=== PATIENT | female | born 1985 | race Caucasian/White ===

== ENCOUNTER 2020-05-23 08:11 | Emergency (ER) | payer OTHER ==
[2020-05-23] MEDS ORDERED: Sodium Chloride 0.9% 1000 ML 1,000 ML IV SCH (08:45)
--- NOTE | 2020-05-23 08:57 | ERPHSYRPT ---
- History of Present Illness Time Seen by Provider: 05/23/20 08:25 Source: patient Patient Subjective Stated Complaint: pt is aprox. 10 weeks . pt states she woke up this morning and went to the bathroom and had a little blood on the toilet paper. pt states she also has some slight cramping, nothing too bad. pt states this is her 5th and has never had any issues. pt states she seen some tiny blood clots when she went to the bathroom. Triage Nursing Assessment: pt A&Ox4. pt ambulatory. pt skin pwd. Physician History: Patient is a 34-year-old female G5, P4 M0 presents to our ED currently 10 weeks . Patient complains of vaginal bleeding. Patient states she went to the bathroom this morning and wiped. Patient observed a tiny clots and tinge of blood on toilet paper. Patient admits to experiencing mild intermittent cramping. No trauma. No fever. No nausea or vomiting. No diaphoresis. No diarrhea. No dizziness patient denies history of complications. She is otherwise healthy. Patient has been taking vitamins. Patient voices no other complaints concerns at this time. Timing/Duration: today Severity: mild Modifying Factors: Improves With: other (No modifying factors.) Associated Symptoms: denies symptoms Allergies/Adverse Reactions: No Known Drug Allergies Allergy (Verified 05/23/20 08:29) Home Medications: Vit37/Iron/Folic Acid [Prenata Chewable Tablet] 1 tab PO DAILY 05/23/20 [History] Hx Tetanus, Diphtheria Vaccination/Date Given: Yes Hx Influenza Vaccination/Date Given: No Hx Pneumococcal Vaccination/Date Given: No Immunizations Up to Date: Yes Travel Risk - International Travel Have you traveled outside of the country in past 3 weeks: No - Coronavirus Screening Are you exhibiting any of the following symptoms?: No Close contact with a COVID-19 positive Pt in past 14-21 Days: No - Review of Systems Constitutional: No Symptoms, No Fever, No Chills Eyes: No Symptoms Ears, Nose, & Throat: No Symptoms Respiratory: No Symptoms, No Cough, No Dyspnea Cardiac: No Symptoms, No Chest Pain, No Edema, No Syncope Abdominal/Gastrointestinal: No Symptoms, No Abdominal Pain, No Nausea, No Vomiting, No Diarrhea Genitourinary Symptoms: No Symptoms, No Dysuria Musculoskeletal: No Symptoms, No Back Pain, No Neck Pain Skin: No Symptoms, No Rash Neurological: No Symptoms, No Dizziness, No Focal Weakness, No Sensory Changes Psychological: No Symptoms Endocrine: No Symptoms Hematologic/Lymphatic: No Symptoms Immunological/Allergic: No Symptoms All Other Systems: Reviewed and Negative - Past Medical History Pertinent Past Medical History: No Neurological History: No Pertinent History ENT History: No Pertinent History Cardiac History: No Pertinent History Respiratory History: No Pertinent History Endocrine Medical History: No Pertinent History Musculoskeletal History: No Pertinent History GI Medical History: No Pertinent History History: No Pertinent History Psycho-Social History: No Pertinent History Female Reproductive Disorders: No Pertinent History Other Medical History: kidney stones - Past Surgical History Past Surgical History: Yes Neuro Surgical History: No Pertinent History Cardiac: No Pertinent History Respiratory: No Pertinent History Gastrointestinal: Appendectomy Genitourinary: No Pertinent History Musculoskeletal: No Pertinent History Female Surgical History: No Pertinent History Other Surgical History: stent placed for kidney stone - Social History Smoking Status: Light tobacco smoker Exposure to second hand smoke: Yes Drug Use: none Patient Lives Alone: No - Female History Hx Last Menstrual Period: 03/13/2020 Hx Now: Yes Expected Date of Delivery: 12/18/20 - Nursing Vital Signs Nursing Vital Signs: Initial Vital Signs Temperature 97.8 F 05/23/20 08:22 Pulse Rate 96 H 05/23/20 08:22 Respiratory Rate 17 05/23/20 08:22 Blood Pressure 151/91 05/23/20 08:22 O2 Sat by Pulse Oximetry 100 05/23/20 08:22 Pain Scale Pain Intensity 1 - Physical Exam General Appearance: no apparent distress, alert Eye Exam: PERRL/EOMI, eyes nml inspection Ears, Nose, Throat Exam: normal ENT inspection, TMs normal, pharynx normal, moist mucous membranes Neck Exam: normal inspection, non-tender, supple, full range of motion Respiratory Exam: normal breath sounds, lungs clear, No respiratory distress Cardiovascular Exam: regular rate/rhythm, normal heart sounds, normal peripheral pulses Gastrointestinal/Abdomen Exam: soft, normal bowel sounds, No tenderness, No mass Pelvic Exam: normal external exam, other (No active vaginal bleeding. Cervical office is closed. Minimal blood in vaginal vault.), No adnexal tenderness, No adnexal mass, No mass, No cervical motion tenderness, No uterine tenderness Back Exam: normal inspection, normal range of motion, No CVA tenderness, No vertebral tenderness Extremity Exam: normal inspection, normal range of motion, pelvis stable Neurologic Exam: alert, oriented x 3, cooperative, normal mood/affect, nml cerebellar function, nml station & gait, sensation nml, No motor deficits Skin Exam: normal color, warm, dry, No rash Lymphatic Exam: No adenopathy SpO2 Interpretation: normal SpO2: 100 O2 Delivery: Room Air - Course Nursing assessment & vital signs reviewed: Yes - Radiology Ultrasound Exam OB Ultrasound: discussed w/radiologist (Per radiology check patient appears to be 5 weeks 4 days. No other abnormalities.) Ordered Tests: Active Orders 24 hr Category Date Time Status IV Insertion STAT Care 05/23/20 08:34 Active OB <14 WKS 1ST GESTATION [US] Stat Exams 05/23/20 08:33 Completed CBC W DIFF Stat Lab 05/23/20 08:45 Completed CMP Stat Lab 05/23/20 08:45 Completed CULTURE,URINE Stat Lab 05/23/20 08:45 Received HCG, Quantitative (Inhouse) Stat Lab 05/23/20 08:45 Completed UA W/RFX UR CULTURE Stat Lab 05/23/20 08:45 Completed Wet Prep Stat Lab 05/23/20 10:59 Completed Medication Summary Generic Name Dose Route Start Last Admin Trade Name Freq PRN Reason Stop Dose Admin Sodium Chloride 1,000 mls @ 100 mls/hr 05/23/20 08:45 05/23/20 10:16 Sodium Chloride 0.9% 1000 Ml IV 06/22/20 08:44 100 mls/hr .Q10H BRITTANI Administration Lab/Rad Data: Laboratory Result Diagrams 05/23/20 08:45 05/23/20 08:45 Laboratory Results 05/23/20 05/23/20 05/23/20 Range/Units 10:59 08:45 08:45 WBC (4.0-10.5) K/mm3 RBC (4.1-5.4) M/mm3 Hgb (12.0-16.0) gm/dl Hct (35-47) % MCV (78-100) fl MCH (26-32) pg MCHC (32-36) g/dl RDW (11.5-14.0) % Plt Count (150-450) K/mm3 MPV (7.5-11.0) fl Gran % (36.0-66.0) % Eos # (Auto) (0-0.5) Absolute Lymphs (auto) (1.0-4.6) Absolute Monos (auto) (0.0-1.3) Lymphocytes % (24.0-44.0) % Monocytes % (0.0-12.0) % Eosinophils % (0.00-5.0) % Basophils % (0.0-0.4) % Absolute Granulocytes (1.4-6.9) Basophils # (0-0.4) Sodium (137-145) mmol/L Potassium (3.5-5.1) mmol/L Chloride (98-107) mmol/L Carbon Dioxide (22-30) mmol/L Anion Gap (5-15) MEQ/L BUN (7-17) mg/dL Creatinine (0.52-1.04) mg/dL Estimated GFR ML/MIN Glucose (74-106) mg/dL Calcium (8.4-10.2) mg/dL Total Bilirubin (0.2-1.3) mg/dL AST (14-36) U/L ALT (0-35) U/L Alkaline Phosphatase (38-126) U/L Serum Total Protein (6.3-8.2) g/dL Albumin (3.5-5.0) g/dL Beta HCG, Quant mIU/ml Urine Color YELLOW (YELLOW) Urine Appearance SLIGHTLY CLOUDY (CLEAR) Urine pH 7.0 (5-6) Ur Specific Antoine 1.019 (1.005-1.025) Urine Protein 30 (Negative) Urine Ketones NEGATIVE (NEGATIVE) Urine Blood LARGE (0-5) Wang/ul Urine Nitrite NEGATIVE (NEGATIVE) Urine Bilirubin NEGATIVE (NEGATIVE) Urine Urobilinogen NEGATIVE (0-1) mg/dL Ur Leukocyte Esterase SMALL (NEGATIVE) Urine WBC (Auto) 11-15 (0-5) /HPF Urine RBC (Auto) >101 (0-2) /HPF U Epithel Cells (Auto) RARE (FEW) /HPF Urine Bacteria (Auto) FEW (NEGATIVE) /HPF Urine Mucus (Auto) SLIGHT (NEGATIVE) /HPF Urine Culture Reflexed YES (NO) Urine Glucose NEGATIVE (NEGATIVE) mg/dL WBC (Wet Prep) Few RBC (Wet Prep) Few Epi Cells (Wet Prep) Few Bacteria (Wet Prep) Many Clue Cells (Wet Prep) None Seen Trichomonas (Wet Prep) None Seen Budding Yeast (Wet Prp) None Seen ABO Group O Rh Factor POSITIVE Antibody Screen NEGATIVE (NEGATIVE) 05/23/20 05/23/20 05/23/20 Range/Units 08:45 08:45 08:45 WBC 7.5 (4.0-10.5) K/mm3 RBC 4.13 (4.1-5.4) M/mm3 Hgb 12.7 (12.0-16.0) gm/dl Hct 39.0 (35-47) % MCV 94.4 (78-100) fl MCH 30.8 (26-32) pg MCHC 32.6 (32-36) g/dl RDW 12.7 (11.5-14.0) % Plt Count 246 (150-450) K/mm3 MPV 9.3 (7.5-11.0) fl Gran % 62.8 (36.0-66.0) % Eos # (Auto) 0.05 (0-0.5) Absolute Lymphs (auto) 1.93 (1.0-4.6) Absolute Monos (auto) 0.79 (0.0-1.3) Lymphocytes % 25.7 (24.0-44.0) % Monocytes % 10.5 (0.0-12.0) % Eosinophils % 0.7 (0.00-5.0) % Basophils % 0.3 (0.0-0.4) % Absolute Granulocytes 4.71 (1.4-6.9) Basophils # 0.02 (0-0.4) Sodium 140 (137-145) mmol/L Potassium 3.7 (3.5-5.1) mmol/L Chloride 104 (98-107) mmol/L Carbon Dioxide 26 (22-30) mmol/L Anion Gap 13.3 (5-15) MEQ/L BUN 9 (7-17) mg/dL Creatinine 0.62 (0.52-1.04) mg/dL Estimated GFR > 60.0 ML/MIN Glucose 87 (74-106) mg/dL Calcium 9.4 (8.4-10.2) mg/dL Total Bilirubin 0.60 (0.2-1.3) mg/dL AST 23 (14-36) U/L ALT 17 (0-35) U/L Alkaline Phosphatase 58 (38-126) U/L Serum Total Protein 7.2 (6.3-8.2) g/dL Albumin 4.4 (3.5-5.0) g/dL Beta HCG, Quant 8027.2 mIU/ml Urine Color (YELLOW) Urine Appearance (CLEAR) Urine pH (5-6) Ur Specific Antoine (1.005-1.025) Urine Protein (Negative) Urine Ketones (NEGATIVE) Urine Blood (0-5) Wang/ul Urine Nitrite (NEGATIVE) Urine Bilirubin (NEGATIVE) Urine Urobilinogen (0-1) mg/dL Ur Leukocyte Esterase (NEGATIVE) Urine WBC (Auto) (0-5) /HPF Urine RBC (Auto) (0-2) /HPF U Epithel Cells (Auto) (FEW) /HPF Urine Bacteria (Auto) (NEGATIVE) /HPF Urine Mucus (Auto) (NEGATIVE) /HPF Urine Culture Reflexed (NO) Urine Glucose (NEGATIVE) mg/dL WBC (Wet Prep) RBC (Wet Prep) Epi Cells (Wet Prep) Bacteria (Wet Prep) Clue Cells (Wet Prep) Trichomonas (Wet Prep) Budding Yeast (Wet Prp) ABO Group Rh Factor Antibody Screen (NEGATIVE) - Progress Progress: improved Progress Note: 05/23/20 11:28 Wet mount ordered. Results pending. GC chlamydia unable to be processed due to low volume of urine provided. Patient did not want to wait to provide us a larger urine sample. She states she will follow-up with her primary care doctor and obtain a GC chlamydia as indicated. Ultrasound shows a gestational sac consistent with 5 weeks 4 days. Patient's estimated 10-week gestational age was based on LMP. UTI observed. Macrobid transmitted to patient's pharmacy. Will discharge patient home. Wet mount results pending. Week will call patient at home with results if positive. Counseled pt/family regarding: lab results, diagnosis, need for follow-up, meera stein - Departure Departure Disposition: Home Clinical Impression: UTI (urinary tract infection), Threatened , Vaginal bleeding Condition: Stable Critical Care Time: No Referrals: FRANCISCO BAUER MD [Primary Care Provider] - Additional Instructions: Discharge/Care Plan OTILIO CORDOBA was seen on 05/23/20 in the Emergency Room. The patient was counseled regarding Diagnosis,Lab results, Imaging studies, need for follow up and when to return to the Emergency Room. Prescriptions given: Discharge Note I have spoken with the patient and/or caregivers. I have explained the patient's condition, diagnosis and treatment plan based on the information available to me at this time. I have answered the patient's and/or caregiver's questions and addressed any concerns. The patient and/or caregivers have as good understanding of the patient's diagnosis, condition and treatment plan as can be expected at this point. The vital signs have been stable. The patient's condition is stable and appropriate for discharge from the emergency department. The patient will pursue further outpatient evaluation with the primary care physician or other designated or consulting physician as outlined in the discharge instructions. The patient and/or caregivers are agreeable to this plan of care and follow-up instructions have been explained in detail. The patient and/or caregivers have received these instruction. The patient/and or caregivers are aware that any significant change in condition or worsening of symptoms should prompt an immediate return to this or the closest emergency department or call 911. Prescriptions: Nitrofurantoin Macro 100 mg [Macrobid 100MG Capsule] 100 mg PO BID 7 Days #14 capsule
[2020-05-23 09:06] LABS: Absolute Neutrophil Ct (ANC) 4.71 (1.4-6.9); BASOPHIL % 0.3 % (0.0-0.4); Basophil (Absolute #) 0.02 (0-0.4); Eosinophil % 0.7 % (0.00-5.0); Eosinophil (Absolute #) 0.05 (0-0.5); Hemoglobin 12.7 gm/dl (12.0-16.0); Lymphocyte (Absolute #) 1.93 (1.0-4.6); Lymphocytes % 25.7 % (24.0-44.0); Mean Cell Volume 94.4 fl (78-100); Mean Corpuscular Hemoglobin 30.8 pg (26-32); Mean Corpuscular Hgb Concent. 32.6 g/dl (32-36); Mean Platelet Volume 9.3 fl (7.5-11.0); Monocyte (Absolute #) 0.79 (0.0-1.3); Monocytes % 10.5 % (0.0-12.0); Neutrophil % 62.8 % (36.0-66.0); Platelet Count 246 K/mm3 (150-450); Red Blood Count 4.13 M/mm3 (4.1-5.4); Red Cell Distribution Width 12.7 % (11.5-14.0); White Blood Count 7.5 K/mm3 (4.0-10.5)
[2020-05-23] MEDS ORDERED: Sodium Chloride 0.9% 1000 ML 1,000 ML ONE ×2 (09:06→10:09)
[2020-05-23 09:14] LABS: ALBUMIN 4.4 g/dL (3.5-5.0); ALKALINE PHOSPHATASE 58 U/L (38-126); ANION GAP 13.3 MEQ/L (5-15); BLOOD UREA NITROGEN 9 mg/dL (7-17); CHLORIDE 104 mmol/L (98-107); Calcium 9.4 mg/dL (8.4-10.2); Carbon Dioxide 26 mmol/L (22-30); Creatinine 1 0.62 mg/dL (0.52-1.04); Glucose 87 mg/dL (74-106); Potassium 3.7 mmol/L (3.5-5.1); SGOT/AST 23 U/L (14-36); SGPT/ALT 17 U/L (0-35); SODIUM 140 mmol/L (137-145); Total Protein 7.2 g/dL (6.3-8.2)
[2020-05-23 09:17] LABS: Appearance SLIGHTLY CLOUDY (CLEAR); Bacteria FEW /HPF (NEGATIVE); Bilirubin NEGATIVE (NEGATIVE); Blood LARGE Ery/ul (0-5); Epithelial Cells RARE /HPF (FEW); Glucose NEGATIVE (NEGATIVE); Ketones NEGATIVE (NEGATIVE); Leukocyte Esterase SMALL (NEGATIVE); Mucus SLIGHT /HPF (NEGATIVE); Nitrite NEGATIVE (NEGATIVE); Protein,Urine Dip 30 (Negative); RBC >101 /HPF (0-2); Specific Gravity 1.019 (1.005-1.025); Urobilinogen NEGATIVE mg/dL (0-1)
[2020-05-23 09:41] LABS: ABO TYPING O; Antibody Screen NEGATIVE (NEGATIVE); RH TYPING POSITIVE
--- NOTE | 2020-05-23 10:20 | XRAY ---
Exam: OB ultrasound less than 14 weeks from 05/23/2020. Comparison: None. Indication: Check viability, bleeding. Findings: Multiple transvaginal images were obtained. A slightly irregular gestational sac is seen within the upper uterine segment which has a mean diameter of 1.38 cm consistent with a gestational age of 5 weeks, 4 days plus or -0 weeks, 4 days. In contrast, estimated gestational age by dates is 10 weeks, 1 day. I do not see a definite pole within the gestational sac. No cardiac activity/flash is seen. If clinically necessary, consider a follow-up OB ultrasound exam in 1-2 weeks. There appear to be some very small nabothian cysts within the cervical region. No free intraperitoneal fluid is seen within the cul-de-sac. The maternal left ovary is remarkable for a 1.27 cm in diameter probable corpus luteal cyst within it. The maternal right ovary appears unremarkable. Impression: 1. A small gestational sac with a mean diameter of 1.38 cm is seen within the central aspect of the upper uterine segment. The contour of the gestational sac is slightly irregular. I do not see any definite pole or cardiac activity within the gestational sac at this time. If clinically necessary, a follow-up OB ultrasound in 1 - 2 weeks time is suggested. 2. Probable 1.27 cm in diameter corpus luteal cyst within the maternal left ovary. Otherwise, the maternal ovaries are unremarkable. 3. No free fluid is seen within the cul-de-sac.
[2020-05-23 10:59] LABS: Bacteria Many; Clue Cells None Seen; Red Blood Cells Few; Trichomonas None Seen; White Blood Cells Few; Yeast None Seen
[2020-05-23 11:29] VITALS: O2SAT 100
[2020-05-23 11:39] VITALS: BP 126/74; PULSE 75
== END 2020-05-23 11:49 | disposition home or self-care (01) ==
LOC: ED 08:11
DX: O23.41 Unspecified infection of urinary tract in pregnancy, first trimester (principal); Z3A.10 10 weeks gestation of pregnancy; O20.0 Threatened abortion
CPT/HCPCS: 36415; 76801; 80053; 81001; 84702; 85025; 86850; 86900; 86901; 87086; 87210; 96360; 96361; 96374; 99284

== ENCOUNTER 2022-06-19 08:13 | Inpatient (IN) | payer OTHER ==
[2022-06-19] MEDS ORDERED: NORCO 5/325 MG PO PRN (10:12)
[2022-06-19] MEDS ORDERED: TUCKS TP PRN (10:12)
[2022-06-19] MEDS ORDERED: Lactated Ringers 1,000 ML IV ONE (10:12)
[2022-06-19] MEDS ORDERED: LANSINOH 40 GM TOP PRN (10:12)
[2022-06-19] MEDS ORDERED: Ephedrine Sulfate 50 MG/ML IV PRN (10:12)
[2022-06-19] MEDS ORDERED: XYLOCAINE 1% HCL 20 ML MDV IJ PRN (10:12)
[2022-06-19] MEDS ORDERED: Adacel Vial IM ONE (10:12)
[2022-06-19] MEDS ORDERED: Zofran 4 MG/2 ML VIAL IV PRN (10:12)
[2022-06-19] MEDS ORDERED: Dermoplast Spray TP PRN (10:12)
[2022-06-19] MEDS ORDERED: MOTRIN 400 MG PO PRN (10:12)
[2022-06-19] MEDS ORDERED: FENTANYL 2 MCG-BUPIV 0.125%-NS 250 ML Epidur 250 ML EPIDURAL SCH (10:15)
[2022-06-19] MEDS ORDERED: PITOCIN 30 UNITS/ LR 500 ML 30 UNITS/500 ML PLAST..BAG IV SCH ×2 (10:30→15:30)
[2022-06-19] MEDS ORDERED: Lactated Ringers 1,000 ML IV SCH (10:30)
[2022-06-19 11:06] LABS: Absolute Neutrophil Ct (ANC) 6.95 x10^3/uL (1.4-6.9); Basophil (Absolute #) 0.03 x10^3/uL (0-0.4); Eosinophil % 0.3 % (0.00-5.0); Eosinophil (Absolute #) 0.03 x10^3/uL (0-0.5); Hematocrit 36.6 % (35-47); Lymphocyte (Absolute #) 2.05 x10^3/uL (1.0-4.6); Lymphocytes % 19.8 % (24.0-44.0); Mean Cell Volume 95.3 fL (78-100); Mean Corpuscular Hemoglobin 31.3 pg (26-32); Mean Corpuscular Hgb Concent. 32.8 g/dL (32-36); Mean Platelet Volume 9.8 fL (7.5-11.0); Monocyte (Absolute #) 1.17 x10^3/uL (0.0-1.3); Monocytes % 11.3 % (0.0-12.0); Neutrophil % 67.3 % (36.0-66.0); Platelet Count 279 x10^3/uL (150-450); Red Blood Count 3.84 x10^6/uL (4.1-5.4); White Blood Count 10.3 x10^3/uL (4.0-10.5)
[2022-06-19 11:07] LABS: Barbiturate,Urine NEGATIVE (NEGATIVE); Benzodiazepine,Urine NEGATIVE (NEGATIVE); Cocaine,Urine NEGATIVE (NEGATIVE); Methadone,Urine NEGATIVE (NEGATIVE); Opiate,Urine NEGATIVE (NEGATIVE); PCP,Urine NEGATIVE (NEGATIVE); THC,Urine NEGATIVE (NEGATIVE)
[2022-06-19 11:12] LABS: Amphetamine,Urine NEGATIVE (NEGATIVE)
[2022-06-19 11:41] LABS: ABO TYPING O; Antibody Screen NEGATIVE (NEGATIVE); RH TYPING POSITIVE
[2022-06-19] MEDS: Tums EX 750 MG PO PRN ×2 (15:56→18:02)
[2022-06-20 05:38] LABS: Absolute Neutrophil Ct (ANC) 11.92 x10^3/uL (1.4-6.9); Basophil (Absolute #) 0.03 x10^3/uL (0-0.4); Eosinophil % 0.2 % (0.00-5.0); Eosinophil (Absolute #) 0.04 x10^3/uL (0-0.5); Hematocrit 30.9 % (35-47); Hemoglobin 10.2 g/dL (12.0-16.0); Lymphocyte (Absolute #) 3.12 x10^3/uL (1.0-4.6); Lymphocytes % 18.3 % (24.0-44.0); Mean Cell Volume 95.4 fL (78-100); Mean Corpuscular Hemoglobin 31.5 pg (26-32); Mean Platelet Volume 9.5 fL (7.5-11.0); Monocyte (Absolute #) 1.85 x10^3/uL (0.0-1.3); Monocytes % 10.9 % (0.0-12.0); Neutrophil % 69.9 % (36.0-66.0); Platelet Count 240 x10^3/uL (150-450); Red Blood Count 3.24 x10^6/uL (4.1-5.4); Red Cell Distribution Width 13.2 % (11.5-14.0); White Blood Count 17.1 x10^3/uL (4.0-10.5)
[2022-06-20 07:24] LABS: Slide Review 1 YES
[2022-06-20] MEDS: TYLENOL EXTRA STRENGTH 500 MG PO PRN ×2 (08:21→22:07)
[2022-06-20] MEDS: Docusate Sodium 100 MG PO SCH ×2 (08:21→22:08)
[2022-06-20] MEDS ORDERED: FERREX 150 PO SCH (10:00)
[2022-06-20 10:02] LABS: HBsAg Screen Negative (Negative); RPR Non Reactive (Non Reactive)
[2022-06-20 14:35] LABS: HIV Screen 4th Generation wRfx Non Reactive (Non Reactive)
[2022-06-21 03:40] VITALS: O2SAT 97
--- NOTE | 2022-06-21 08:39 | PCM.DS ---
Discharge Summary Date of Admission: 06/19/22 10:00 Admitting Physician: FRANCISCO BAUER Consults: Consults on Case 06/19/22 10:13 Notify Anesthesia Provider PRN 06/19/22 19:24 Navigation ONCE Primary Care Provider: FRANCISCO BAUER Allergies Allergies No Known Drug Allergies Allergy (Verified 05/23/20 08:29) Hospital Summary - Hospital Course Hospital Course: arrived in spont labor at 38wks, had uncomplicated with epidural anesthesia. no repair, and well bonded with daughter. doing great - Vitals & Intake/Output Vital Signs: Vital Signs Temperature 97.9 F 06/21/22 08:00 Pulse Rate 68 06/21/22 08:00 Respiratory Rate 18 06/21/22 08:00 Blood Pressure 139/77 06/21/22 08:00 O2 Sat by Pulse Oximetry 97 06/21/22 03:00 Intake & Output: Intake & Output 06/18/22 06/19/22 06/20/22 06/21/22 11:59 11:59 11:59 11:59 Intake Total 1375 200 Output Total 1240 Balance 135 200 Weight 78.018 kg - Lab Result Diagrams: 06/20/22 04:45 Lab Results-Last 24 Hrs: Lab Results-Last 24 Hours 06/19/22 06/19/22 Range/Units 10:58 10:58 RPR Non Reactive (Non Reactive) Hep Bs Antigen Negative (Negative) HIV 1&2 Ab/P24 Ag 4thGn Non Reactive (Non Reactive) Micro Results-Entire Visit: Microbiology 06/19/22 22:07 Urine Culture - Final Urine, Catheterized NO GROWTH Discharge Exam General Appearance: no apparent distress, alert Respiratory Exam: normal breath sounds, lungs clear, No respiratory distress Cardiovascular Exam: regular rate/rhythm, normal heart sounds Gastrointestinal/Abdomen Exam: soft, other (fundus firm, u/2) Extremity Exam: normal inspection, normal range of motion Skin Exam: normal color, warm, dry Final Diagnosis/Problem List - Final Discharge Diagnosis/Problem (1) Vaginal delivery Current Visit: No Status: Acute Code(s): O80 - ENCOUNTER FOR FULL-TERM UNCOMPLICATED DELIVERY (2) Breast feeding status of mother Current Visit: No Status: Acute Code(s): Z39.1 - ENCOUNTER FOR CARE AND EXAMINATION OF LACTATING MOTHER - Discharge Disposition: Home, Self-Care Condition: Stable Prescriptions: Continue Vit37/Iron/Folic Acid [Prenata Chewable Tablet] 1 tab PO DAILY Discontinued Nitrofurantoin Macro 100 mg [Macrobid 100MG Capsule] 100 mg PO BID 7 Days #14 capsule Follow up with: FRANCISCO BAUER MD [Primary Care Provider] - 6 weeks
[2022-06-21 14:27] VITALS: BP 140/83; PULSE 77
== END 2022-06-21 14:00 | disposition home or self-care (01) | DRG 807 ==
LOC: OB 08:13 → OBSVTOIN 10:00 → OB 10:00
PROVIDERS: ADMIT Family Medicine; ATTEND Family Medicine
PROC: 10E0XZZ Delivery of Products of Conception, External Approach (ICD-10-PCS; principal; 2022-06-19)
DX: O80 Encounter for full-term uncomplicated delivery (principal); Z37.0 Single live birth; Z3A.38 38 weeks gestation of pregnancy; Z20.828 Contact with and (suspected) exposure to other viral communicable diseases
CPT/HCPCS: 36415; 80307; 85025; 86592; 86850; 86900; 86901; 87086; 87340; 87389; 90715; J2590; A9270-GY

== ENCOUNTER 2023-10-10 11:33 | Emergency (ER) | payer OTHER ==
[2023-10-10 11:54] VITALS: TEMP 98.9
--- NOTE | 2023-10-10 11:56 | ERPHSYRPT ---
- History of Present Illness Time Seen by Provider: 10/10/23 11:50 Source: patient Exam Limitations: no limitations Patient Subjective Stated Complaint: pt states that she is short of breath. pt states that she has a cough and fever Triage Nursing Assessment: pt ambulated into the er; pt is axo x4; c/o SOB; pt has intermitten moist cough; pt has course expiratory wheezing present to rt upper lobe; SOB; audible wheezing present; skin is calmy, warm; afebrile; 20 weeks present; heart tone of 158 bpm; tachycardic Physician History: This is a 38-year-old white female patient of Dr. Bauer who presents with cough and shortness of breath and intermittent fevers for 2 days. Patient is 20 weeks . Patient's mother was diagnosed with COVID-19 infection. However, this patient was not around her till after she was able to return to work 2 weeks after her diagnosis. Patient has been using Tylenol based medication. heart tones on arrival to the urgency department 158 bpm. Room air oxygen saturation is 97% Timing/Duration: day(s) (2) Severity of Dyspnea-Max: mild (To moderate) Severity of Dyspnea-Current: mild (To moderate) Possible Cause: no prior episodes Modifying Factors: Improves With: coughing, deep breath Associated Symptoms: intermittent, cough, wheezing, No chest pain/discomfort, No hemoptysis Allergies/Adverse Reactions: No Known Drug Allergies Allergy (Verified 10/10/23 11:35) Home Medications: Vit37/Iron/Folic Acid [Prenata Chewable Tablet] 1 tab PO DAILY 05/23/20 [History] Hx Tetanus, Diphtheria Vaccination/Date Given: Yes Hx Influenza Vaccination/Date Given: No Hx Pneumococcal Vaccination/Date Given: No Travel Risk - International Travel Have you traveled outside of the country in past 3 weeks: No - Coronavirus Screening Are you exhibiting any of the following symptoms?: Yes Symptoms: Cough: New Onset, Shortness of Breath Close contact with a COVID-19 positive Pt in past 14-21 Days: No - Vaccine Status Have you recieved a Covid-19 vaccination: No - Review of Systems Constitutional: Fever Eyes: No Symptoms Ears, Nose, & Throat: No Symptoms Respiratory: Cough, Dyspnea, Wheezing Cardiac: No Symptoms Abdominal/Gastrointestinal: No Symptoms Genitourinary Symptoms: No Symptoms Musculoskeletal: No Symptoms Skin: No Symptoms Neurological: No Symptoms Psychological: No Symptoms Endocrine: No Symptoms Hematologic/Lymphatic: No Symptoms Immunological/Allergic: No Symptoms All Other Systems: Reviewed and Negative - Past Medical History Pertinent Past Medical History: Yes Neurological History: No Pertinent History ENT History: No Pertinent History Cardiac History: No Pertinent History Respiratory History: No Pertinent History Endocrine Medical History: No Pertinent History Musculoskeletal History: Fractures GI Medical History: No Pertinent History History: No Pertinent History, Other Psycho-Social History: No Pertinent History Female Reproductive Disorders: No Pertinent History Other Medical History: broken leg when 3 yo. stent placed for kidney stones in 2016. - Past Surgical History Past Surgical History: Yes Neuro Surgical History: No Pertinent History Cardiac: No Pertinent History Respiratory: No Pertinent History Gastrointestinal: Appendectomy Genitourinary: Kidney Surgery Musculoskeletal: No Pertinent History Female Surgical History: No Pertinent History Other Surgical History: stent placed for kidney stones in 2015. - Social History Smoking Status: Former smoker Exposure to second hand smoke: No Drug Use: none Patient Lives Alone: No - Female History Hx Now: Yes Gestational Age: 20 weeks - Nursing Vital Signs Nursing Vital Signs: Initial Vital Signs Pulse Rate 117 H 10/10/23 11:33 Respiratory Rate 34 H 10/10/23 11:33 Blood Pressure 140/84 10/10/23 11:33 O2 Sat by Pulse Oximetry 96 10/10/23 11:33 Pain Scale Pain Intensity 0 - Physical Exam General Appearance: no apparent distress, alert, anxiety Eye Exam: PERRL/EOMI, eyes nml inspection Ears, Nose, Throat Exam: hearing grossly normal, normal ENT inspection, normal pharynx Neck Exam: normal inspection, non-tender, supple, full range of motion Respiratory Exam: rhonchi (Mild bilateral), wheezing (Mild bilateral expiratory), No chest tenderness, No respiratory distress Cardiovascular/Chest Exam: tachycardia Abdominal/Gastrointestinal Exam: soft, normal bowel sounds, No tenderness Rectal Exam: not done Extremity Exam: non-tender, normal range of motion, normal inspection, normal capillary refill, no calf tenderness, no pedal edema, pelvis stable Neurologic Exam: alert, oriented x 3, cooperative, carpenter helper maintenance II-XII nml as tested, normal mood/affect, nml cerebellar function, nml station & gait, sensation nml Skin Exam: normal color, warm, dry Lymphatic Exam: No adenopathy SpO2 Interpretation: normal SpO2: 99 O2 Delivery: Room Air - Course Nursing assessment & vital signs reviewed: Yes EKG Interpreted by Me: RATE (122), Sinus Tach, NORMAL AXIS, NORMAL INTERVALS, NORMAL QRS, NORMAL ST-T, Other (No acute ischemic changes on today's twelve-lead EKG.) Ordered Tests: Active Orders 24 hr Category Date Time Status IV Insertion STAT Care 10/10/23 11:59 Active Pulse Oximetry (ED) STAT Care 10/10/23 11:59 Active BLOOD CULTURE Stat Lab 10/10/23 12:25 Received CBC W DIFF Stat Lab 10/10/23 12:16 Completed CMP Stat Lab 10/10/23 12:16 Completed MAGNESIUM Stat Lab 10/10/23 12:16 Completed MONO SCREEN Stat Lab 10/10/23 12:51 Completed Respiratory Therapy Assessment DAILY RT 10/10/23 12:22 Active Medication Summary Generic Name Dose Route Start Last Admin Trade Name Freq PRN Reason Stop Dose Admin Magnesium Oxide 400 mg 10/11/23 13:48 Magnesium Oxide 400 Mg Tablet PO 10/11/23 13:49 STAT ONE Discontinued Medications Generic Name Dose Route Start Last Admin Trade Name Freq PRN Reason Stop Dose Admin Albuterol Sulfate 2.5 mg 10/10/23 12:14 10/10/23 12:20 Albuterol Sulfate 2.5 Mg/3 Ml Neb IH 10/10/23 12:15 2.5 mg STAT ONE Administration Albuterol Sulfate Confirm 10/10/23 12:18 Albuterol Sulfate 2.5 Mg/3 Ml Neb Administered 10/10/23 12:19 Dose 2.5 mg IH .STK-MED ONE Methylprednisolone Sodium 0 mg 10/10/23 12:14 10/10/23 12:37 Succinate 125 mg/ Sterile IV 10/10/23 12:15 125 mg Water 2 ml STAT ONE Administration Sodium Chloride 500 mls @ 500 mls/hr 10/10/23 12:10 10/10/23 13:38 Sodium Chloride 0.9% 500 Ml IV 10/10/23 13:09 Infused .Q1H ONE Infusion Ceftriaxone Sodium/Dextrose 1 g in 50 mls @ 100 mls/hr 10/10/23 12:14 10/10/23 13:15 Rocephin 1 Gm-D5w 50 Ml Bag IV 10/10/23 12:43 Infused STAT STA Infusion Ceftriaxone Sodium/Dextrose Confirm 10/10/23 12:36 Rocephin 1 Gm-D5w 50 Ml Bag Administered 10/10/23 12:37 Dose 1 g in 50 mls @ ud IV .STK-MED ONE Sodium Chloride Confirm 10/10/23 12:36 Sodium Chloride 0.9% 500 Ml Administered 10/10/23 12:37 Dose 500 mls @ ud IV .STK-MED ONE Methylprednisolone Sodium Succinate Confirm 10/10/23 12:36 Methylprednis Sod Succ 125 Mg/2 Ml Vial Administered 10/10/23 12:37 Dose 125 mg .ROUTE .STK-MED ONE Potassium Chloride 20 meq 10/10/23 13:48 Potassium Chloride Tab 10 Meq Tab PO 10/10/23 13:49 STAT ONE Sterile Water Confirm 10/10/23 12:36 Water For Injection,Sterile 10 Ml Vial Administered 10/10/23 12:37 Dose 10 ml IJ .STK-MED ONE Lab/Rad Data: Laboratory Result Diagrams 10/10/23 12:16 10/10/23 12:16 Laboratory Results 10/10/23 10/10/23 10/10/23 Range/Units 12:51 12:16 12:16 WBC 24.7 H (4.0-10.5) x10^3/uL RBC 3.43 L (4.1-5.4) x10^6/uL Hgb 10.4 L (12.0-16.0) g/dL Hct 31.9 L (35-47) % MCV 93.0 (78-100) fL MCH 30.3 (26-32) pg MCHC 32.6 (32-36) g/dL RDW 13.8 (11.5-14.0) % Plt Count 237 (150-450) x10^3/uL MPV 8.9 (7.5-11.0) fL Gran % 88.4 H (36.0-66.0) % Immature Gran % (Auto) 2.6 H (0.00-0.4) % Nucleat RBC Rel Count 0.0 (0.00-0.1) % Eos # (Auto) 0.01 (0-0.5) x10^3/uL Immature Gran # (Auto) 0.65 H (0.00-0.03) x10^3u/L Absolute Lymphs (auto) 1.11 (1.0-4.6) x10^3/uL Absolute Monos (auto) 1.09 (0.0-1.3) x10^3/uL Absolute Nucleated RBC 0.00 (0.00-0.01) x10^3u/L Lymphocytes % 4.5 L (24.0-44.0) % Monocytes % 4.4 (0.0-12.0) % Eosinophils % 0.0 (0.00-5.0) % Basophils % 0.1 (0.0-0.4) % Absolute Granulocytes 21.80 H (1.4-6.9) x10^3/uL Basophils # 0.03 (0-0.4) x10^3/uL Sodium 132 L (137-145) mmol/L Potassium 3.1 L (3.5-5.1) mmol/L Chloride 102 (98-107) mmol/L Carbon Dioxide 24 (22-30) mmol/L Anion Gap 9.1 (5-15) MEQ/L BUN 8 (7-17) mg/dL Creatinine 0.47 L (0.52-1.04) mg/dL Estimated GFR 126.5 ML/MIN Glucose 101 (74-106) mg/dL Calcium 8.8 (8.4-10.2) mg/dL Magnesium 1.4 L (1.6-2.3) mg/dL Total Bilirubin 0.50 (0.2-1.3) mg/dL AST 14 (14-36) U/L ALT 11 (0-35) U/L Alkaline Phosphatase 86 (38-126) U/L Serum Total Protein 6.5 (6.3-8.2) g/dL Albumin 3.3 L (3.5-5.0) g/dL Monoscreen NEGATIVE (NEGATIVE) Influenza Type A Ag (NEGATIVE) Influenza Type B Ag (NEGATIVE) RSV (PCR) (NEGATIVE) SARS-CoV-2 (PCR) (NEGATIVE) 10/10/23 Range/Units 12:10 WBC (4.0-10.5) x10^3/uL RBC (4.1-5.4) x10^6/uL Hgb (12.0-16.0) g/dL Hct (35-47) % MCV (78-100) fL MCH (26-32) pg MCHC (32-36) g/dL RDW (11.5-14.0) % Plt Count (150-450) x10^3/uL MPV (7.5-11.0) fL Gran % (36.0-66.0) % Immature Gran % (Auto) (0.00-0.4) % Nucleat RBC Rel Count (0.00-0.1) % Eos # (Auto) (0-0.5) x10^3/uL Immature Gran # (Auto) (0.00-0.03) x10^3u/L Absolute Lymphs (auto) (1.0-4.6) x10^3/uL Absolute Monos (auto) (0.0-1.3) x10^3/uL Absolute Nucleated RBC (0.00-0.01) x10^3u/L Lymphocytes % (24.0-44.0) % Monocytes % (0.0-12.0) % Eosinophils % (0.00-5.0) % Basophils % (0.0-0.4) % Absolute Granulocytes (1.4-6.9) x10^3/uL Basophils # (0-0.4) x10^3/uL Sodium (137-145) mmol/L Potassium (3.5-5.1) mmol/L Chloride (98-107) mmol/L Carbon Dioxide (22-30) mmol/L Anion Gap (5-15) MEQ/L BUN (7-17) mg/dL Creatinine (0.52-1.04) mg/dL Estimated GFR ML/MIN Glucose (74-106) mg/dL Calcium (8.4-10.2) mg/dL Magnesium (1.6-2.3) mg/dL Total Bilirubin (0.2-1.3) mg/dL AST (14-36) U/L ALT (0-35) U/L Alkaline Phosphatase (38-126) U/L Serum Total Protein (6.3-8.2) g/dL Albumin (3.5-5.0) g/dL Monoscreen (NEGATIVE) Influenza Type A Ag NEGATIVE (NEGATIVE) Influenza Type B Ag NEGATIVE (NEGATIVE) RSV (PCR) POSITIVE (NEGATIVE) SARS-CoV-2 (PCR) NEGATIVE (NEGATIVE) - Progress Progress: improved, re-examined Air Movement: fair Progress Note: 10/10/23 12:32 This patient's medical issue is 1 of moderate complexity. The level of complexity in the workup performed is based on review the patient's past medical history, review of the patient's medication list, review the patient's drug allergy list, history of present illness and physical findings on examination. The workup in this patient includes placement of intravenous line, obtaining blood cultures, CBC, CMP, viral swabs, monotest, IV normal saline infusion. I did speak with the patient's statement clerks manager, Dr. Bauer. I reviewed the patient history, physical findings and my anticipated workup. I also asked him about using albuterol and a single dose of Solu-Medrol. He agrees that this can be done. The patient does have wheezing present. I also am providing her with a dose of Rocephin 1 g intravenously. My plan is to educate her on medications that she can use to help suppress her cough and loosen up the mucus in her lungs. I will also send a prescription of cefdinir to her pharmacy at the time of discharge. 10/10/23 12:36 I am going to hold off on the chest x-ray. I will be treating this patient for bronchitis and pneumonia. I do not feel the chest x-ray is necessary at this time. 10/10/23 13:49 I reviewed and interpreted the patient's laboratory data results. Patient has leukocytosis. She has RSV infection, he has mild hypokalemia and mild hypomagnesemia. We will infuse the remainder of the normal saline solution, provide the patient with 20 mEq of potassium orally now and magnesium 400 mg orally now. I will remotely send a prescription of cefdinir 3 mg orally twice a day for 7 days to her pharmacy. In addition I will remotely send potassium 10 mEq twice a day for 2 days and magnesium oxide 400 mg orally Blood Culture(s) Obtained: Yes Antibiotics given: Yes Counseled pt/family regarding: lab results, diagnosis, need for follow-up Medical Desision Making - Diagnostic Testing Diagnostic test were ordered, analyzed, and reviewed by me: Yes - Risk of complications The pt has a mod risk of morbidity or mortality based on: Need for prescription drug management - Departure Departure Disposition: Home Clinical Impression: Upper respiratory infection, RSV bronchitis Condition: Stable Critical Care Time: No Referrals: FRANCISCO BAUER MD [Primary Care Provider] - Follow up/PCP as directed Additional Instructions: Drink plenty of fluids before advancing diet. Use Tylenol to help control fever. Take your antibiotics as prescribed. Take your potassium and magnesium as prescribed for 2 days. May use Benadryl for sinus drainage. May use Robitussin DM or Mucinex dm to help with sinus congestion and suppressing cough. Call your primary care provider today, 10/10/2023, to make arrangements for follow-up appointment in the next 3 to 5 days. Return to the emergency department if symptoms worsen.
[2023-10-10] MEDS ORDERED: Sodium Chloride 0.9% 500 ML 500 ML IV ONE ×2 (12:10→12:36)
[2023-10-10] MEDS ORDERED: ROCEPHIN 1 Gm-D5w 50 ml Bag** 1 G/50 ML IVPB IV STA (12:14)
[2023-10-10] MEDS ORDERED: solu-MEDROL 125 MG, Sterile H2O 10 ml 2 ML IV ONE ×2 (12:14)
[2023-10-10] MEDS ORDERED: PROVENTIL 2.5 MG/3 ML NEB IH ONE ×2 (12:14→12:18)
[2023-10-10 12:33] LABS: BASOPHIL % 0.1 % (0.0-0.4); Basophil (Absolute #) 0.03 x10^3/uL (0-0.4); Eosinophil (Absolute #) 0.01 x10^3/uL (0-0.5); Hematocrit 31.9 % (35-47); Hemoglobin 10.4 g/dL (12.0-16.0); IMMATURE GRAN # 0.65 x10^3u/L (0.00-0.03); IMMATURE GRAN % 2.6 % (0.00-0.4); Lymphocyte (Absolute #) 1.11 x10^3/uL (1.0-4.6); Lymphocytes % 4.5 % (24.0-44.0); Mean Corpuscular Hemoglobin 30.3 pg (26-32); Mean Corpuscular Hgb Concent. 32.6 g/dL (32-36); Mean Platelet Volume 8.9 fL (7.5-11.0); Monocyte (Absolute #) 1.09 x10^3/uL (0.0-1.3); Monocytes % 4.4 % (0.0-12.0); Neutrophil % 88.4 % (36.0-66.0); Platelet Count 237 x10^3/uL (150-450); Red Blood Count 3.43 x10^6/uL (4.1-5.4); Red Cell Distribution Width 13.8 % (11.5-14.0); White Blood Count 24.7 x10^3/uL (4.0-10.5)
[2023-10-10] MEDS ORDERED: ROCEPHIN 1 Gm-D5w 50 ml Bag** 1 G/50 ML IVPB IV ONE (12:36)
[2023-10-10] MEDS ORDERED: solu-MEDROL ONE (12:36)
[2023-10-10] MEDS ORDERED: Sterile H2O 10 ml IJ ONE (12:36)
[2023-10-10 12:49] LABS: ALBUMIN 3.3 g/dL (3.5-5.0); BILIRUBIN,TOTAL 0.5 mg/dL (0.2-1.3); Calcium 8.8 mg/dL (8.4-10.2); Creatinine 1 0.47 mg/dL (0.52-1.04); EST GLOMERULAR FILTRATION RATE 126.5 ML/MIN; MAGNESIUM 1.4 mg/dL (1.6-2.3); Total Protein 6.5 g/dL (6.3-8.2)
[2023-10-10 12:51] LABS: Potassium 3.1 mmol/L (3.5-5.1)
[2023-10-10 12:53] LABS: ANION GAP 9.1 MEQ/L (5-15)
[2023-10-10 13:11] LABS: INFLUENZA A NEGATIVE (NEGATIVE); INFLUENZA B NEGATIVE (NEGATIVE); SARS-CoV-2 Xpert Express NEGATIVE (NEGATIVE)
[2023-10-10 13:22] LABS: RESPIRATORY SYNCTIAL VIRUS POSITIVE (NEGATIVE)
[2023-10-10] MEDS ORDERED: Klor Con PO ONE ×2 (13:48→13:53)
[2023-10-10] MEDS ORDERED: MAG-OX 400 ONE (13:53)
[2023-10-10] MEDS ORDERED: TYLENOL 325 MG PO ONE (13:56)
[2023-10-10] MEDS ORDERED: TYLENOL 325 MG ONE (13:58)
[2023-10-10 14:03] VITALS: BP 135/86; PULSE 119; RESP 40; O2SAT 98
[2023-10-10 14:18] LABS: Slide Review 1 YES
[2023-10-11] MEDS ORDERED: MAG-OX 400 PO ONE (13:48)
== END 2023-10-10 14:14 | disposition home or self-care (01) ==
LOC: ED 11:33
DX: O99.512 Diseases of the respiratory system complicating pregnancy, second trimester (principal); J20.5 Acute bronchitis due to respiratory syncytial virus; Z3A.20 20 weeks gestation of pregnancy; R05.1 Acute cough; R06.02 Shortness of breath; R50.9 Fever, unspecified; Z28.310 Unvaccinated for COVID-19
CPT/HCPCS: 0241U; 36000; 36415; 80053; 83735; 85025; 86308; 87040; 87077; 94640; 94760; 96365; 96374; 99284; J0696; J2930; J7609; A9270-GY

== ENCOUNTER 2024-01-16 12:13 | Observation (INO) | payer OTHER ==
[2024-01-16 13:07] VITALS: RESP 18; O2SAT 97
[2024-01-16] MEDS: BRETHINE 1 MG/ML SQ ONE ×2 (14:09→15:25)
[2024-01-16] MEDS: Lactated Ringers 1,000 ML IV SCH ×2 (14:09→16:12)
[2024-01-16] MEDS: Celestone Soluspan 6MG/ML IM SCH (14:10)
[2024-01-16 14:56] VITALS: BP 130/82; PULSE 82; TEMP 97.7
[2024-01-16] MEDS: Magnesium Sulfate 40 Gm/1000 Ml H2O Premix*** 1,000 ML IV SCH (16:16)
[2024-01-16 16:22] LABS: Hematocrit 31.4 % (35-47); Hemoglobin 10.4 g/dL (12.0-16.0); Mean Corpuscular Hemoglobin 29.1 pg (26-32); Mean Corpuscular Hgb Concent. 33.1 g/dL (32-36); Mean Platelet Volume 10.3 fL (7.5-11.0); Platelet Count 275 x10^3/uL (150-450); Red Blood Count 3.57 x10^6/uL (4.1-5.4); Red Cell Distribution Width 12.7 % (11.5-14.0); White Blood Count 11.3 x10^3/uL (4.0-10.5)
--- NOTE | 2024-01-16 16:29 | PCM.SSS ---
History of Present Illness - Chief Complaint Chief Complaint: IUP History of Present Illness: is a 38 year old female at 34 4/7 wks EGA with induced hypertension here for NST today, she is mariusz every 2 to 3 minutes, was given 12mg betamethasone and a liter bolus of LR, terbutaline x 2 and continues to contract, she is feeling discomfort with contractions, no LOF or vaginal bleeding. - Review of Systems Constitutional: No Fever, No Chills Respiratory: No Cough, No Short Of Breath Cardiac: No Chest Pain, No Edema, No Syncope Abdominal/Gastrointestinal: Other (contractions), No Abdominal Pain Skin: No Rash Neurological: No Dizziness, No Focal Weakness, No Sensory Changes All Other Systems: Reviewed and Negative Medications & Allergies Home Medications: Home Medication List Vit37/Iron/Folic Acid [Prenata Chewable Tablet] 1 tab PO DAILY 05/23/20 [History Confirmed 10/10/23] Iron,Carb/Vit C/Vit B12/Folic [Iron 100 Plus Tablet] 01/08/24 [History] Labetalol HCl 100 mg [Trandate 100 MG] 100 mg PO BID 01/08/24 [History Confirmed 01/08/24] Allergies/Adverse Reactions: Allergies Allergy/AdvReac Type Severity Reaction Status Date / Time No Known Drug Allergies Allergy Verified 10/10/23 11:35 - Past Medical History Past Medical History: Yes Neurological History: No Pertinent History ENT History: No Pertinent History Cardiac History: No Pertinent History Respiratory History: No Pertinent History Endocrine Medical History: No Pertinent History Musculoskelatal History: Fractures GI Medical History: No Pertinent History History: No Pertinent History, Other Pyscho-Social History: No Pertinent History Reproductive Disorders: No Pertinent History Comment: broken leg when 3 yo. stent placed for kidney stones in 2016. - Female History Expected Date of Delivery: 02/23/24 - Past Surgical History Past Surgical History: Yes Neuro Surgical History: No Pertinent History Cardiac History: No Pertinent History Respiratory Surgery: No Pertinent History GI Surgical History: Appendectomy Genitourinary Surgical Hx: Kidney Surgery Musculskeletal Surgical Hx: No Pertinent History Female Surgical History: No Pertinent History Other Surgical History: stent placed for kidney stones in 2016. - Social History Smoking Status: Light tobacco smoker Exposure to second hand smoke: No Alcohol: None Drug Use: none - Social Determinants of Health Will the patient participate in the screening: Yes Do you worry about a steady place to live?: No Do you have any problems with any of the following?: No known problems In the past 12 months,have you had to go without utilities?: No Have you or anyone in your house had to go without enough: No Transportation Issues: No Has anyone in your support network made you feel unsafe?: No Does the patient want assistance with any of the above?: No - Physical Exam Vital Signs: Vital Signs - 24 hr Temp Pulse Resp BP BP Pulse Ox 01/16/24 14:15 97.7 F 82 18 130/82 130/82 97 01/16/24 12:32 97.5 F 85 18 149/80 97 General Appearance: no apparent distress Neurologic Exam: alert, oriented x 3 Respiratory Exam: normal breath sounds, lungs clear, No respiratory distress Cardiovascular Exam: regular rate/rhythm, normal heart sounds, normal peripheral pulses Gastrointestinal/Abdomen Exam: soft, other (SVE 2cm/50%/-2) Extremity Exam: normal inspection, normal range of motion, pelvis stable Results - Labs Lab/Micro Results: Lab Results-Last 24 Hours 01/16/24 Range/Units 16:19 WBC 11.3 H (4.0-10.5) x10^3/uL RBC 3.57 L (4.1-5.4) x10^6/uL Hgb 10.4 L (12.0-16.0) g/dL Hct 31.4 L (35-47) % MCV 88.0 (78-100) fL MCH 29.1 (26-32) pg MCHC 33.1 (32-36) g/dL RDW 12.7 (11.5-14.0) % Plt Count 275 (150-450) x10^3/uL MPV 10.3 (7.5-11.0) fL Assessment/Plan (1) labor Current Visit: Yes Status: Acute Assessment & Plan: starting mag sulfate 4g then 2g/hr, discussed with Dr Serafin Guerrero OB hospitalist at [facility] and Dr Joy KENNEDY who agree to accept patient in transfer to OB ED at [facility], gave report that betametasone was given. discussed need to transfer to patient Code(s): O60.00 - LABOR WITHOUT DELIVERY, UNSPECIFIED TRIMESTER (2) Gestational [-induced] hypertension without significant proteinuria, complicating childbirth Current Visit: Yes Status: Acute Assessment & Plan: has been well controlled on labetalol 200mg bid, reported last bp 164/[address] Guerrero and [facility] Code(s): O13.4 - GESTATNL HTN WITHOUT SIGNIFICANT PROTEIN, COMP CHILDBIRTH Hospital Summary - Vitals & Intake/Output Vital Signs: Vital Signs Temperature 97.7 F 01/16/24 14:15 Pulse Rate 82 01/16/24 14:15 Respiratory Rate 18 01/16/24 14:15 Blood Pressure 130/82 01/16/24 14:15 O2 Sat by Pulse Oximetry 97 01/16/24 14:15 Intake & Output: Intake & Output 01/14/24 01/15/24 01/16/24 01/17/24 11:59 11:59 11:59 11:59 Weight 78.925 kg - Lab Result Diagrams: 01/16/24 16:19 Lab Results-Last 24 Hrs: Lab Results-Last 24 Hours 01/16/24 Range/Units 16:19 WBC 11.3 H (4.0-10.5) x10^3/uL RBC 3.57 L (4.1-5.4) x10^6/uL Hgb 10.4 L (12.0-16.0) g/dL Hct 31.4 L (35-47) % MCV 88.0 (78-100) fL MCH 29.1 (26-32) pg MCHC 33.1 (32-36) g/dL RDW 12.7 (11.5-14.0) % Plt Count 275 (150-450) x10^3/uL MPV 10.3 (7.5-11.0) fL - Discharge Disposition: DC TO [facility] Condition: Stable Prescriptions: No Action Vit37/Iron/Folic Acid [Prenata Chewable Tablet] 1 tab PO DAILY Labetalol HCl 100 mg [Trandate 100 MG] 100 mg PO BID Iron,Carb/Vit C/Vit B12/Folic [Iron 100 Plus Tablet] Additional Instructions: Dr Serafin Guerrero accepting physician to OB ED at [facility] via ambulance transport, ACLS transfer required due magnesium infusion Follow up with: FRANCISCO BAUER MD [Primary Care Provider] -
[2024-01-16 16:37] LABS: ALBUMIN 3.2 g/dL (3.5-5.0); ANION GAP 10.5 MEQ/L (5-15); BILIRUBIN,TOTAL 0.3 mg/dL (0.2-1.3); Calcium 8.5 mg/dL (8.4-10.2); Creatinine 1 0.6 mg/dL (0.52-1.04); EST GLOMERULAR FILTRATION RATE 119.2 ML/MIN; INR 0.91 (0.8-3.0); PTT 24.9 SECONDS (25.1-36.5); Potassium 4.1 mmol/L (3.5-5.1); Total Protein 6.5 g/dL (6.3-8.2)
[2024-01-16 17:11] LABS: Appearance Clear (Clear); Bacteria None Seen /HPF (None Seen); Bilirubin Negative (Negative); Blood Negative (Negative); Epithelial Cells None Seen /HPF (None Seen); Glucose, Urine Negative (Negative); Hyaline Casts NONE SEEN /LPF (0-2); Ketones Negative (Negative); Leukocyte Esterase Negative (Negative); Nitrite Negative (Negative); Ph 6.5 (4.6-8.0); Protein,Urine Dip Negative (Negative); RBC 0-2 /HPF (0-5); Urobilinogen 0.2 mg/dL (0.2); WBC 0-2 /HPF (0-5)
[2024-01-16 17:12] LABS: ADD URINE CULTURE? ORDERED SEPARATELY (NO)
== END 2024-01-16 17:38 | disposition home or self-care (01) ==
LOC: OB.NST 12:13 → OB 13:51
PROVIDERS: ADMIT Family Medicine; ATTEND Family Medicine
DX: Z34.83 Encounter for supervision of other normal pregnancy, third trimester (principal); Z3A.34 34 weeks gestation of pregnancy
CPT/HCPCS: 36415; 59025; 80053; 81001; 83735; 85027; 85610; 85730; 87086; 96372; 99213; G0378; J0702